=== PATIENT | male | born 1950 | race Caucasian/White ===

== ENCOUNTER → 2017-09-09 | Outpatient (CLI) | payer MEDICARE, OTHER | LOC: COL.RAD 09:50 | DX: M25.551 Pain in right hip (principal); S83.281A Other tear of lateral meniscus, current injury, right knee, initial encounter; X58.XXXA Exposure to other specified factors, initial encounter; M94.8X6 Other specified disorders of cartilage, lower leg | CPT/HCPCS: J3301; Q9967 ==

== ENCOUNTER → 2017-10-18 | Outpatient (CLI) | payer MEDICARE, OTHER | LOC: COL.RAD 08:43 | DX: M25.551 Pain in right hip (principal) | CPT/HCPCS: J3301; Q9967 ==

== ENCOUNTER → 2018-03-14 | Outpatient (CLI) | payer MEDICARE, OTHER | LOC: COL.RAD 10:33 | DX: M16.11 Unilateral primary osteoarthritis, right hip (principal) | CPT/HCPCS: J3301; Q9967 ==

== ENCOUNTER 2018-05-09 10:22 | Inpatient (IN) | payer MEDICARE, OTHER ==
[~2018-05-09] VITALS: Ht 172.7 cm; Wt 129.0 kg
[2018-07-09] VITALS (11 sets, daily range): BP systolic 108–145; BP diastolic 64–87; PULSE 81–107; TEMP 98.1–98.7
[2018-07-09] MEDS ORDERED: TOPROL XL 50MG50 MG PO (08:47)
[2018-07-09] MEDS ORDERED: CYMBALTA 60MG60 MG PO (09:09)
[2018-07-09] MEDS ORDERED: GLUCOPHAGE500 MG/TAB PO (09:09)
[2018-07-09] MEDS ORDERED: MOBIC15 MG PO (09:09)
[2018-07-10 03:53] VITALS: BP 133/68; PULSE 99; TEMP 98
[2018-07-10 06:41] LABS: HEMOGLOBIN 13.1 g/dl (13.5-18.0)
[2018-07-10 07:19] VITALS: BP 151/71; PULSE 98; TEMP 98.6
[2018-07-10 12:48] VITALS: BP 123/73; PULSE 107; TEMP 97.8
[2018-07-10 16:01] VITALS: BP 143/75; PULSE 103; TEMP 98
[2018-07-10 19:25] VITALS: BP 134/93; PULSE 108; TEMP 98.6
[2018-07-10 23:26] VITALS: BP 149/81; PULSE 98; TEMP 98.4
[2018-07-11 04:21] VITALS: BP 159/82; PULSE 102; TEMP 98.4
[2018-07-11] MEDS ORDERED: ASPI325T6 PO (06:49)
[2018-07-11] MEDS ORDERED: NORCO 325 MG-7.1 TAB PO (06:49)
[2018-07-11] MEDS ORDERED: ROXICODONE 55 MG/TAB PO (06:50)
[2018-07-11] MEDS ORDERED: TYLENOL 500MG500 MG PO (06:51)
[2018-07-11 07:17] LABS: BASO % 0.3 % (0.0-2.0); EOS % 0.2 % (0-4.0); GRAN # 7.4 (1.4-6.5); GRAN % 75.4 % (42.2-75.2); HEMOGLOBIN 12.1 g/dl (13.5-18.0); LYMPH # 1.8 (1.2-3.4); LYMPH % 18.3 % (20.0-51.0); MEAN CELL VOLUME 89 fl (80.0-100.0); MEAN CORPUSCULAR HEMOGLOBIN 29 pg (27.0-31.0); MEAN CORPUSCULAR HGB CONC 33 g/dl (33.0-37.0); MEAN PLATELET VOLUME 9.4 fl (7.4-10.4); MONO # 0.5 (0.1-0.6); MONO % 5.3 % (1.7-9.3); PLATELET COUNT 162 K/mm3 (130-400); RED BLOOD COUNT 4.18 M/mm3 (4.20-5.60)
[2018-07-11 07:28] LABS: CALCIUM 8.3 mg/dL (8.4-10.2); CREATININE, serum 0.79 mg/dL (0.66-1.25); POTASSIUM 4.1 mmol/L (3.4-5.0)
[2018-07-11 08:41] VITALS: BP 162/73; PULSE 101; TEMP 98.4
[2018-07-11] MEDS ORDERED: PRINIVIL5 MG PO (09:43)
[2018-07-11 11:49] VITALS: BP 145/73; PULSE 105; TEMP 97.8
== END 2018-07-11 12:30 | disposition home or self-care (01) | DRG 470 ==
LOC: JCC 07-09 07:32
PROVIDERS: Orthopaedic Surgery; Physician Assistant
PROC: 0SR90JA Replacement of Right Hip Joint with Synthetic Substitute, Uncemented, Open Approach (ICD-10-PCS; principal; 2018-07-09 14:15)
DX: M16.11 Unilateral primary osteoarthritis, right hip (principal); Z68.41 Body mass index [BMI] 40.0-44.9, adult; M87.851 Other osteonecrosis, right femur; E66.01 Morbid (severe) obesity due to excess calories; E11.65 Type 2 diabetes mellitus with hyperglycemia; I10 Essential (primary) hypertension; M06.9 Rheumatoid arthritis, unspecified
CPT/HCPCS: 99223; 99232-AI; A4314; C1713; C1776; J0690; J1100; J1815; J2250; J2405; J2704; J3010; J7030; J7120

== ENCOUNTER 2018-05-29 07:55 | Outpatient (RCR) | payer MEDICARE, OTHER ==
[2018-07-09] MEDS ORDERED: TOPROL XL 50MG50 MG PO (08:47)
[2018-07-09] MEDS ORDERED: GLUCOPHAGE500 MG/TAB PO (09:09)
[2018-07-09] MEDS ORDERED: MOBIC15 MG PO (09:09)
[2018-07-09] MEDS ORDERED: CYMBALTA 60MG60 MG PO (09:09)
[2018-07-11] MEDS ORDERED: ASPI325T6 PO (06:49)
[2018-07-11] MEDS ORDERED: NORCO 325 MG-7.1 TAB PO (06:49)
[2018-07-11] MEDS ORDERED: ROXICODONE 55 MG/TAB PO (06:50)
[2018-07-11] MEDS ORDERED: TYLENOL 500MG500 MG PO (06:51)
[2018-07-11] MEDS ORDERED: PRINIVIL5 MG PO (09:43)
== END 2018-08-27 | disposition home or self-care (01) ==
LOC: MKS.ESL.PT
DX: Z01.818 Encounter for other preprocedural examination (principal); M16.11 Unilateral primary osteoarthritis, right hip
CPT/HCPCS: G8978-GP; G8979-GP; G8980-GP

== ENCOUNTER → 2018-06-30 | Outpatient (CLI) | payer MEDICARE, OTHER ==
[2018-06-30 11:55] LABS: HIV 1/2 Antibodies Non-Reactive; HIV-1p24 Antigen Non-Reactive
== END ==
LOC: COL.LAB 10:31
PROVIDERS: Orthopaedic Surgery
DX: Z01.812 Encounter for preprocedural laboratory examination (principal); M16.11 Unilateral primary osteoarthritis, right hip

== ENCOUNTER 2018-08-22 14:00 | Outpatient (RCR) | payer MEDICARE, OTHER ==
[~2018-08-22 14:00] MED LIST: ASPI325T6 PO; CYMBALTA 60MG60 MG PO; GLUCOPHAGE500 MG/TAB PO; MOBIC15 MG PO; NORCO 325 MG-7.1 TAB PO; PRINIVIL5 MG PO; ROXICODONE 55 MG/TAB PO; TOPROL XL 50MG50 MG PO; TYLENOL 500MG500 MG PO
== END 2018-08-26 09:54 | disposition home or self-care (01) ==
LOC: MKS.ESL.PT 14:00
DX: Z47.1 Aftercare following joint replacement surgery (principal); Z96.641 Presence of right artificial hip joint
CPT/HCPCS: G8978-GP; G8979-GP; G8980-GP

== ENCOUNTER 2021-05-12 06:18 | Day surgery (SDC) | payer MEDICARE ==
[~2021-05-12] VITALS: Ht 172.7 cm; Wt 128.6 kg
[2021-05-12 07:23] VITALS: BP 113/86; PULSE 123; TEMP 97.9
--- NOTE | 2021-05-12 07:25 | NUR ---
Respiratory therapy here for EKG. Pt's heart rate now in the 160's and AFIB noted. Pt denies any dizziness, lightheadedness, or palpatations. He is slightly sweaty but reports this is normal for him. B/P is stable. Dr. Schwartz at bedside and sees EKG, speaks with Jazmin Martinez CRNA and the decision is made to cancel the procedure and she will notify hospitalist and admit the pt. Pt and his speak with Dr. Schwartz extensivly.
[2021-05-12] MEDS ORDERED: ASPIRIN 81M81 MG/TA2 PO (07:48)
[2021-05-12] MEDS ORDERED: KAPSPARGO SPRIN50 MG PO (07:48)
[2021-05-12] MEDS ORDERED: GLUCOPHAGE1000 MG PO (07:49)
[2021-05-12] MEDS ORDERED: NORCO 325 MG-51 TAB PO (07:50)
[2021-05-12] MEDS ORDERED: CYMBALTA 60MG60 MG PO (07:50)
[2021-05-12] MEDS ORDERED: PRINIVIL5 MG PO (07:51)
[2021-05-12] MEDS ORDERED: TAGAMET200 MG PO (07:51)
[2021-05-12] MEDS ORDERED: LIPITOR20 MG PO (07:52)
[2021-05-12] MEDS ORDERED: STOOL SOFTENER100 M2 PO (07:53)
--- NOTE | 2021-05-12 08:00 | NUR ---
Pt placed on the monitors and VSS heart rate ranges from 120's-150's. Pt continues to by asymptomatic. Call light in reach.
[2021-05-12] MEDS ORDERED: ELIQUIS 5MG PO (10:16)
[2021-05-12 14:00] VITALS: BP 103/60; PULSE 82; TEMP 98.4
--- NOTE | 2021-05-12 14:00 | NUR ---
Pt returns to [place] [facility] from [facility], awake and alert. VSS. Heart rate regular. Pt denies pain or nausea. Pt given crackers and water. at bedside. Call light in reach.
[2021-05-12 14:15] VITALS: BP 114/68; PULSE 80
--- NOTE | 2021-05-12 14:15 | NUR ---
Pt awake and alert, voids in urinal. Denies needs. Tolerated crackers and water well. VSS.
[2021-05-12 14:30] VITALS: BP 119/67; PULSE 79
--- NOTE | 2021-05-12 14:30 | NUR ---
Dr. Schwartz to bedside and talks with pt and his about findings and discharge plan. 1445 Discharge instructions given by RN and pt gets dressed.
--- NOTE | 2021-05-12 15:00 | NUR ---
Pt taken via wheelchair to private car and left in care of Angelina.
== END 2021-05-12 15:00 | disposition home or self-care (01) ==
LOC: ICU 06:18 → SDCO 06:18 → ICU 08:34 → SDCO 11:00 → ICU 11:00 → SDCO 11:01 → ICU 11:01 → SDCO 15:00
DX: K92.1 Melena (principal); D12.5 Benign neoplasm of sigmoid colon; K29.60 Other gastritis without bleeding; K29.80 Duodenitis without bleeding; K21.9 Gastro-esophageal reflux disease without esophagitis; K57.30 Diverticulosis of large intestine without perforation or abscess without bleeding; K64.1 Second degree hemorrhoids; R19.4 Change in bowel habit; I25.2 Old myocardial infarction; M19.90 Unspecified osteoarthritis, unspecified site; E11.9 Type 2 diabetes mellitus without complications; M25.50 Pain in unspecified joint; T67.5XXS Heat exhaustion, unspecified, sequela; N17.9 Acute kidney failure, unspecified; E66.01 Morbid (severe) obesity due to excess calories; E78.5 Hyperlipidemia, unspecified; Z86.73 Personal history of transient ischemic attack (TIA), and cerebral infarction without residual deficits; Z68.41 Body mass index [BMI] 40.0-44.9, adult; Z90.89 Acquired absence of other organs; Z85.820 Personal history of malignant melanoma of skin; Z20.822 Contact with and (suspected) exposure to COVID-19; Z79.82 Long term (current) use of aspirin; Z79.899 Other long term (current) drug therapy; Z79.84 Long term (current) use of oral hypoglycemic drugs; Z79.01 Long term (current) use of anticoagulants
CPT/HCPCS: J2704; J7030

== ENCOUNTER 2021-05-12 08:44 | Emergency (ER) | payer MEDICARE ==
[~2021-05-12 08:44] MED LIST changes: +ASPIRIN 81M81 MG/TA2 PO; +GLUCOPHAGE1000 MG PO; +KAPSPARGO SPRIN50 MG PO; +LIPITOR20 MG PO; +NORCO 325 MG-51 TAB PO; +STOOL SOFTENER100 M2 PO; +TAGAMET200 MG PO
[2021-05-12 08:52] VITALS: TEMP 98.2
[2021-05-12 09:23] LABS: BASO % 0.4 % (0.0-2.0); EOS # 0.1 (0.0-0.7); EOS % 1.9 % (0-4.0); GRAN # 3.3 (1.4-6.5); GRAN % 64.9 % (42.2-75.2); HEMOGLOBIN 11.4 g/dl (13.5-18.0); LYMPH # 1.3 (1.2-3.4); MEAN CELL VOLUME 82 fl (80.0-100.0); MEAN CORPUSCULAR HEMOGLOBIN 26 pg (27.0-31.0); MEAN CORPUSCULAR HGB CONC 32 g/dl (33.0-37.0); MEAN PLATELET VOLUME 8.9 fl (7.4-10.4); MONO # 0.4 (0.1-0.6); MONO % 7.4 % (1.7-9.3); PLATELET COUNT 265 K/mm3 (130-400); RED BLOOD COUNT 4.38 M/mm3 (4.20-5.60)
[2021-05-12 09:24] LABS: HEMATOCRIT 35.8 % (42.0-52.0)
[2021-05-12 09:40] LABS: ALANINE AMINOTRANSFERASE 28 U/L (4-49); ALBUMIN 3.4 gm/dL (3.5-5.0); ALKALINE PHOSPHATASE 93 U/L (50-136); ANION GAP 6 mmol/L (7-16); AST,SGOT 38 U/L (15-37); BILIRUBIN,TOTAL 0.4 mg/dL (0.0-1.0); BLOOD UREA NITROGEN 19 mg/dL (9-20); CALCIUM 8.8 mg/dL (8.4-10.2); CARBON DIOXIDE 26 mmol/L (22-30); CHLORIDE 107 mmol/L (98-107); CREATININE, serum 1.23 (0.66-1.25); GLUCOSE 120 mg/dL (74-106); POTASSIUM 4.6 mmol/L (3.4-5.0); SODIUM 139 mmol/L (137-145); TOTAL PROTEIN 6.8 gm/dL (6.4-8.2)
[2021-05-12 09:53] LABS: TROPONIN-I < 0.012 ng/mL (0.000-0.035)
[2021-05-12] MEDS ORDERED: ELIQUIS 5MG PO (10:16)
[2021-05-12 10:25] VITALS: BP 106/64; PULSE 86
== END 2021-05-12 10:25 | disposition home or self-care (01) ==
LOC: COL.ER 08:44
PROVIDERS: Emergency Medicine
DX: I48.91 Unspecified atrial fibrillation (principal); R19.5 Other fecal abnormalities; E66.01 Morbid (severe) obesity due to excess calories; I10 Essential (primary) hypertension; E11.9 Type 2 diabetes mellitus without complications; K21.9 Gastro-esophageal reflux disease without esophagitis; M54.5 Low back pain; Z79.82 Long term (current) use of aspirin; Z79.84 Long term (current) use of oral hypoglycemic drugs; Z79.899 Other long term (current) drug therapy; Z87.891 Personal history of nicotine dependence; Z88.6 Allergy status to analgesic agent

== ENCOUNTER → 2021-07-07 | Outpatient (CLI) | payer MEDICARE ==
[~2021-07-07] MED LIST changes: +ELIQUIS 5MG PO
== END ==
LOC: COL.CARD 11:30
DX: I48.91 Unspecified atrial fibrillation (principal)

== ENCOUNTER 2024-09-07 11:04 | Inpatient (IN) | payer MEDICARE ==
[~2024-09-07] VITALS: Ht 172.8 cm; Wt 120.5 kg
[2024-09-07] VITALS (15 sets, daily range): BP systolic 103–128; BP diastolic 57–84; PULSE 59–97; TEMP 97.5–97.8
[2024-09-07] MEDS ORDERED: Heparin 5,000 UNITS/ML 1 ML VIAL IV ONE (11:30)
[2024-09-07] MEDS ORDERED: Heparin/D5W 250 ML IV SCH ×2 (11:30→13:00)
[2024-09-07] MEDS ORDERED: Heparin 5,000 UNITS/ML 1 ML VIAL IV PRN ×2 (11:30→13:00)
[2024-09-07 11:32] LABS: PROTHROMBIN TIME 21.1 SECONDS (9.7-12.8)
[2024-09-07 11:35] LABS: PARTIAL THROMBOPLASTIN TIME 40.4 SECONDS (26.0-37.0)
[2024-09-07 11:42] LABS: ALBUMIN 3.6 g/dL (3.4-4.8); BILIRUBIN,TOTAL 0.4 mg/dL (0.2-1.2); CALCIUM 9.2 mg/dL (8.4-10.2); CREATININE, serum 1.51 mg/dL (0.72-1.25); MAGNESIUM 1.8 mg/dL (1.6-2.6); TOTAL PROTEIN 7.4 g/dl (6.2-8.1)
[2024-09-07] MEDS ORDERED: dilTIAZem 25 MG/5 ML VIAL IV ONE ×2 (11:45→13:15)
[2024-09-07 11:49] LABS: BASO % 0.5 % (0.0-2.0); EOS # 0.2 K/mm3 (0.0-0.7); EOS % 3.2 % (0.0-4.0); GRAN % 66.8 % (42.2-75.2); HEMOGLOBIN 12.3 g/dl (13.5-18.0); LYMPH # 1.3 K/mm3 (1.2-3.4); LYMPH % 21.4 % (20.0-51.0); MEAN CELL VOLUME 88 fl (80.0-100.0); MEAN CORPUSCULAR HEMOGLOBIN 27 pg (27-31); MEAN CORPUSCULAR HGB CONC 31 g/dl (33.0-37.0); MEAN PLATELET VOLUME 10.3 fl (7.4-10.4); MONO # 0.5 K/mm3 (0.1-0.6); MONO % 7.6 % (1.7-9.3); PLATELET COUNT 175 K/mm3 (130-400); RED BLOOD COUNT 4.53 M/mm3 (4.20-5.60); REDCELL DISTRIBUTION WIDTH-CV 16.7 % (11.5-14.5)
[2024-09-07 11:57] LABS: TROPONIN-I 0.035 ng/mL (0.00-0.033)
--- NOTE | 2024-09-07 14:20 | NUR ---
ER CALLED REPORT ON PATIENT GOING INTO ROOM 352. MED REC IS BEING DONE BY MED REC TECH PER ER NURSE. UNCLEAR IF PATIENT IS TAKING ANY ANICOAGULATION, OR PATIENT HISTORY. ER NURSE REPORTED PATIENT IS A&O BUT DIDN'T ANSWER QUESTIONS WELL. HEPARIN & CARDIZEM BOLUS GIVEN. HEPARIN GTT INFUSING. CARDIZEN GTT TO BE STARTED SOON THEY HAVE ANOTHER IV SITE. ER NURSE WAS GOING TO FINISH GETTING THE PATIENT READY FOR THE FLOOR AND STATED SHE WOULD CALL BEFORE COMING UP TO THE ROOM.
[2024-09-07] MEDS ORDERED: Glucagon 1 MG VIAL IM PRN (14:30)
[2024-09-07] MEDS ORDERED: Dextrose (Glucose) 15 GM (4 x 3.75 GM) Chewable TABLET PACK PO PRN (14:30)
[2024-09-07] MEDS ORDERED: Dextrose 50% Water 25 GM/50 ML SYRINGE IV PRN (14:30)
--- NOTE | 2024-09-07 15:15 | NUR ---
PATIENT BROUGHT UP VIA CART FROM ER, NO CALL MADE TO FLOOR RN PRIOR TO ARRIVAL. UPON ENTERING ROOM, ER NURSE AMBULATED PATIENT TO THE BED IN ROOM 352 WHERE HE PASSED OUT AND FACE PLANTED ON THE BED. FLOOR NURSE UNAWARE OF ARRIVAL. CHARGE NURSE PASSING BY ASSISTED TO GET PATIENT BACK IN BED AND CALLED FOR ASSISTANCE. PATIENT RESPONDING NOW BUT REPORTS HE FEELS LIKE HE "PASSED OUT". PATIENT'S B/P IN ER WAS 95/70, NOW IS 112 SYSTOLIC WITH HR IN THE 60'S. PATIENT RECEIVED CARDIZEM & HEPARIN BOLUSES IN ER AND STARTED ON A HEPARIN GTT & CARDIZEM GTT PRIOR TO ADMIT TO THE FLOOR. PATIENT SEEMS A LITTLE OUT OF IT. CALLED CARDIOLOGY AND GAVE PATIENT STATUS UPDATE. OKAY TO RESUME DRIPS, ATTEMPTING TO CLARIFY MEDS WITH AND MED REC TECH ATTEMPTED TO BE CALLED X3 WITH NO ANSWER. ER NURSE AT BEDSIDE STATED THE MED REC TECH ALREADY HAS A LIST AND IS DOING THE MED REC. MED REC IS NOT DONE, ELIQUIS IS NOT LISTED AND THE WRONG PHARMACY WAS LISTED. CALLED PHARMACY TO VERIFY HEPARIN GTT TO BE MEASURED BY PTT OR HEPXA. NO DOCUMENTATION OF PATIENT STARTING ELIQUIS HOWEVER, AT BEDSIDE REPORTS HE HAS BEEN ON EL[facility]QU[facility] SINCE SATURDAY AND THAT SHE TRIED TO GIVE A MED LIST TO THE STAFF IN ER BUT NO ONE WENT OVER IT WITH HER. MADE AWARE, PLAN IS FROM STRESS TEST IN AM. AHA/ADA DIET AND THEN NPO AT MIDNIGHT. HR IN THE 60'S, IRREGULAR ON TELE. NO COMPLAINTS AT THIS TIME. HEAD TO TOE ASSESSMENT COMPLETE, NOTED SEVERAL SKIN ISSUES, SEE ADMISSION DOCUMENTATION. FULL CODE. ORIENTED PATIENT, & BROTHER TO ROOM. CALL LIGHT IN REACH.
[2024-09-07] MEDS ORDERED: Furosemide 40 MG/4 ML VIAL IV ONE (15:30)
[2024-09-07] MEDS ORDERED: ELIQUIS 5MG PO (16:32)
[2024-09-07] MEDS ORDERED: Insulin Lispro (HumaLOG) SQ SCH (17:00)
[2024-09-07] MEDS ORDERED: LASIX 20MG TABL20 MG PO (18:14)
[2024-09-07] MEDS ORDERED: LEVAQUIN 5500 MG/TA1 PO (18:15)
[2024-09-07] MEDS ORDERED: TOPROL XL100 MG PO (18:17)
[2024-09-07] MEDS ORDERED: TYLENOL 500MG500 MG PO (18:18)
[2024-09-07] MEDS ORDERED: NEURONTIN300 MG/CAP PO (18:20)
--- NOTE | 2024-09-07 19:40 | NUR ---
Delay in PTT/HepXa draw due to patient being a hard stick. Lab to send another phleb up to try-third to try so far. Will monitor.
--- NOTE | 2024-09-07 20:12 | NUR ---
Critical PTT >400-heparin drip stopped per protocol. New orders placed for PTT in two hours.
[2024-09-07] MEDS ORDERED: Atorvastatin 20 MG TAB PO SCH (21:00)
--- NOTE | 2024-09-07 21:00 | NUR ---
Spoke with spouse of patient who is at bedside and staying the night. Patient should be on strict I/O due to diuresing. I/O sheet placed in room. Verbalized understanding. Call light in reach. Will monitor.
--- NOTE | 2024-09-07 21:00 | NUR ---
Spoke with MELITON Canchola to update on Heparin gtt status. Notified of critical PTT >400. No new orders received. Next PTT due at 2215.
[2024-09-07 23:01] LABS: PARTIAL THROMBOPLASTIN TIME 83.9 SECONDS (26.0-37.0)
--- NOTE | 2024-09-07 23:15 | NUR ---
PTT 83.9-goal. Heparin gtt decreased 300 units/3mls to 2000units/20mls per protocol and restarted at this time. Next PTT due at 0515. Updated family and patient. Will monitor.
[2024-09-08] VITALS (25 sets, daily range): BP systolic 109–146; BP diastolic 26–89; PULSE 88–143; TEMP 97.4–98.4
--- NOTE | 2024-09-08 01:04 | NUR ---
Notified by a dealer support technician that patients HR went up to 130s for a second and then back down to 100s. Patient is currently in A FIB and on an amio drip with a HR in the 90s. Will monitor.
--- NOTE | 2024-09-08 05:13 | NUR ---
Call from [employer] that patients HR is in the 140s. This nurse to room to evaluate patient. is at bedside and states patient was having a nightmare and had been moving around in bed and yelling out. Patients spouse states she woke patient up after a few minutes. Currently patients HR is 110. Will monitor.
--- NOTE | 2024-09-08 05:59 | NUR ---
Patient didnt rest much this shift. Cardizem infusing to left AC 20g at 5mg/hr. Heparin infusing to right AC 20g at 2000 units/hr. Waiting PTT results at this time. Has had 1190 out in urine this shift. TELE reporting A fib. VS stable. Has been NPO since 0000. Denies current questions/concerns. Call light in reach. Will monitor.
--- NOTE | 2024-09-08 06:00 | NUR ---
Requested lab draw patient next as PTT is past due. States they will go there next.
--- NOTE | 2024-09-08 07:35 | NUR ---
Patient in bed, lab and at the bedside. A&Ox4. VSS. IV CDI, fluids infusing. Denies pain and discomfort. NPO for a procedure. Call light within reach. Bed alarm on
[2024-09-08] MEDS ORDERED: MIRALAX PA17 GM/Dose PO (07:51)
[2024-09-08] MEDS ORDERED: Regadenoson 0.08 MG/ML 5 ML SYRINGE IV SCH (08:58)
[2024-09-08] MEDS ORDERED: Docusate Sodium 100 MG CAP PO SCH (09:00)
[2024-09-08] MEDS ORDERED: Pantoprazole 40 MG in NS 10 ML IV SCH (09:00)
[2024-09-08] MEDS ORDERED: DULoxetine 60 MG CAP PO SCH (09:00)
--- NOTE | 2024-09-08 11:15 | NUR ---
KATE met with patient and his Angelina ([phone], ) to complete initial assessment for discharge planning. [place] Patient lists his son Kristian ([phone]) as contact. Patient denies having a DPOA completed but is interested in completing one at this time. Patient sees Dr. Pako Villanueva as his PCP and uses [facility] pharmacy without difficulty. Patient has a cane, walker, wheelchair, lift chair, and shower bench at home. Patient plans to return home at time of discharge. Discharge plan: Home
[2024-09-08 11:16] LABS: BASO % 0.4 % (0.0-2.0); EOS # 0.1 K/mm3 (0.0-0.7); GRAN # 3.5 K/mm3 (1.4-6.5); GRAN % 70.3 % (42.2-75.2); HEMOGLOBIN 11.2 g/dl (13.5-18.0); MEAN CELL VOLUME 85 fl (80.0-100.0); MEAN CORPUSCULAR HEMOGLOBIN 27 pg (27-31); MEAN CORPUSCULAR HGB CONC 32 g/dl (33.0-37.0); MEAN PLATELET VOLUME 10.1 fl (7.4-10.4); MONO # 0.3 K/mm3 (0.1-0.6); MONO % 6.1 % (1.7-9.3); PLATELET COUNT 126 K/mm3 (130-400); RED BLOOD COUNT 4.14 M/mm3 (4.20-5.60); REDCELL DISTRIBUTION WIDTH-CV 16.8 % (11.5-14.5)
[2024-09-08 11:17] LABS: HEMATOCRIT 35.3 % (42.0-52.0)
[2024-09-08 11:35] LABS: CALCIUM 9.1 mg/dL (8.4-10.2); CHOLESTEROL RISK RATIO 3.1; CREATININE, serum 1.21 mg/dL (0.72-1.25); POTASSIUM 4.3 mEq/L (3.5-4.5)
--- NOTE | 2024-09-08 11:48 | NUR ---
Notified CHEN Worley charge of mews score 4. Patient A&Ox4. HR tachycardic, doctors aware and awaiting testing.
[2024-09-08] MEDS ORDERED: LR 1,000 ML IV SCH (12:30)
[2024-09-08] MEDS ORDERED: Lidocaine PF 2% (20 MG/ML) 5 ML VIAL ONE (12:30)
[2024-09-08] MEDS ORDERED: *Potassium Replacement Protocol MC SCH (13:00)
[2024-09-08] MEDS ORDERED: Furosemide 100 MG in NS 100 ML IV SCH (13:00)
--- NOTE | 2024-09-08 13:08 | NUR ---
Initial visit; Patient indisposed, [place] spoke with his ; Angelina letting her know of the availability of [facility] at [facility].
--- NOTE | 2024-09-08 14:02 | NUR ---
KATE and CHEN Pearson met with patient to complete DPOA document. Patient named his Angelina as DPOA and their son Kristian as alternate. KATE and CHEN Pearson witnessed signature. Original and copies provided to patient and , copy of DPOA on chart. Discharge plan: Home
--- NOTE | 2024-09-08 14:39 | NUR ---
House Supervisors Gaby RN and CHEN Marinelli of MEWS score of 4 and that patient has been ST in the 120-140 range. Primary nurse CHEN Pearson notified June Hughes- new order rec'd. Pt asymptomatic.
--- NOTE | 2024-09-08 14:50 | NUR ---
Dose adjusted cardizem per cardiologys orders. VS monitored per protocol. Patient informed of status and verbalized understanding. No further needs expressed. Call light within reach
--- NOTE | 2024-09-08 15:12 | NUR ---
Painting catheter inserted. Pericare provided before and after removal. 16F painting, 10ml in balloon. Patient tolerated well. No further needs expressed. Call light within reach. Bed alarm on
--- NOTE | 2024-09-08 15:53 | NUR ---
MEWS SCORE 4, WILL CONTINUE TO UPDATE CHEN COX CHARGE ON PATIENT STATUS. PATIENT A&OX4. VSS. IV CDI. DENIES PAIN AND DISCOMFORT. CALL LIGHT WITHIN REACH
--- NOTE | 2024-09-08 16:07 | NUR ---
CHEN COX CHARGE NOTIFIED HOUSE OF MEWS SCORE
[2024-09-08] MEDS ORDERED: Cephalexin 500 MG CAP PO SCH (21:00)
[2024-09-09] VITALS (20 sets, daily range): BP systolic 111–152; BP diastolic 53–83; PULSE 87–116; TEMP 97.5–98.1
--- NOTE | 2024-09-09 01:18 | NUR ---
patient lying in bed, alert and oriented x4, hard of hearing bilaterally, at bedside. denies chest pain/discomfort and shortness of breath. 2058- SULMA Canchola notified for clarification of keflex order, new orders to start keflex 09/09/24. pt aware of NPO status. PICC in YARITZA with heparin gtt running at 2000 units/hr in one line, and cardizem gtt running at 7.5 mg/min in other line, site CDI. 2229- per PTT result, heparin gtt paused for 1 hour and decreased 250 units. heparin gtt restarted at 2332 to run at 1750 units/hr with next pTT recheck at 0530. LAC IV patent, site CDI with lasix gtt running at 11 ml/hr. BLE +2 pitting edema hands with non pitting edema. left calf with scabbed ulcer and right calf with multiple small scattered/scabbed ulcers, all CDI. painting catheter in place, draing pale yellow clear urine. fall precautions in place, call light within reach. interim dry cloth placed under panus to prevent moisture build up, skin CDI. pt has no further needs, questions or concerns at this time.
[2024-09-09 06:36] LABS: BASO % 0.4 % (0.0-2.0); EOS # 0.1 K/mm3 (0.0-0.7); EOS % 2.6 % (0.0-4.0); GRAN # 3.3 K/mm3 (1.4-6.5); GRAN % 68.1 % (42.2-75.2); HEMATOCRIT 37.4 % (42.0-52.0); HEMOGLOBIN 12.3 g/dl (13.5-18.0); LYMPH # 1.1 K/mm3 (1.2-3.4); LYMPH % 22.6 % (20.0-51.0); MEAN CELL VOLUME 83 fl (80.0-100.0); MEAN CORPUSCULAR HEMOGLOBIN 27 pg (27-31); MEAN CORPUSCULAR HGB CONC 33 g/dl (33.0-37.0); MEAN PLATELET VOLUME 10.1 fl (7.4-10.4); MONO # 0.3 K/mm3 (0.1-0.6); MONO % 6.1 % (1.7-9.3); PLATELET COUNT 136 K/mm3 (130-400); REDCELL DISTRIBUTION WIDTH-CV 16.7 % (11.5-14.5)
[2024-09-09 06:55] LABS: CALCIUM 9.1 mg/dL (8.4-10.2); CREATININE, serum 1.19 mg/dL (0.72-1.25); POTASSIUM 3.4 mEq/L (3.5-4.5)
[2024-09-09] MEDS ORDERED: Potassium Bicarbonate/Citrate 20 MEQ Effervescent TAB PO SCH (08:30)
[2024-09-09] MEDS ORDERED: *Potassium Replacement Protocol MC SCH ×2 (08:30→09:15)
[2024-09-09] MEDS ORDERED: Potassium Chloride 100 ML IV SCH ×2 (09:15→15:30)
[2024-09-09] MEDS ORDERED: Magnesium Sulfate 2 GM/50 ML IV SOLN IV SCH (11:30)
[2024-09-09] MEDS ORDERED: Iohexol 300 - 100 ML VIAL IV ONE (12:00)
[2024-09-09] MEDS ORDERED: Magnesium Sulfate 1 GM/100 ML IV Soln IV SCH (12:30)
--- NOTE | 2024-09-09 13:19 | NUR ---
PATIENT WENT DOWN TO PANTOGRAPH OPERATOR AT APPROX 1310. PATIENT IS ALERT ADN ORIENTED.
[2024-09-09] MEDS ORDERED: Lidocaine PF 2% (20 MG/ML) 5 ML VIAL ONE (14:14)
[2024-09-09] MEDS ORDERED: Amiodarone 450 MG in D5W Excel 250 ML IV SCH (15:18)
[2024-09-09] MEDS ORDERED: Furosemide 100 MG in NS 100 ML IV SCH (15:30)
[2024-09-09] MEDS ORDERED: Apixaban 5 MG TABLET PO ONE (15:30)
--- NOTE | 2024-09-09 15:38 | NUR ---
ANESTHESIA PRESENT FOR SEDATION DURING SAMSON/ CARDIOVERSION. SEE ANESTHESIA RECORD FOR IN PROCEDURE MONITORING. SAMSON START AT 1433, SAMSON COMPLETION AT 1437. UPON COMPLETION OF SAMSON, CARDIOVERSION COMPLETED UNDER GUIDANCE BY DR JOHNSON. ATTEMPTED CARDIOVERSION AT 75 J,UNSUCCESFUL PT REMAINED IN AFIB. ANOTHER CARDIOVERSION AT 200J SUCCESFULLY CONVERTED PATIENT TO NSR. A BOLUS OF AMIODARONE 300 ML WAS DELIVERED PER VERBAL ORDER FROM DR JOHNSON. PATIENT TOLERATED PROCEDURE WELL.
--- NOTE | 2024-09-09 15:43 | NUR ---
SKINPREPPED AND DRAPED IN STERILE FASHION AT 1504. DR JOHNSON INSERTED LOOP RECORDER AND CLOSED SIDE WITH TWO STITCHES. PRESSURE WAS HELD ON SITE AND A DRESSING WAS APPLIED. DEVICE PROGRAMMED PER GUIDELINES. REPORT GIVEN TO JEFFREY SIDDIQUI AT 1534. PATIENT TOLERATED PROCEDURE WELL AND IS BEING TRANSFERRED BACK TO MEDICAL FLOOR AT 1545.
--- NOTE | 2024-09-09 16:40 | NUR ---
PATIENT BACK FROM CONCRETE TECHNICIAN AT APPROX 1600. PATIENT IS AWAKE, ALERT AND ORIENTED. VSS. PATIENT STABLE ON RA. POST OP VS INITIATED. AMIO GTT RUNNING INTRAVANEOUSLY PER JAN. PATIENT MONITORED ON TELE. LASIX GTT CONT. INCISION TO LEFT CHEST IS CDI. EKG COMPLETE. PATIENT ORDERS DINNER, DENIES PAIN OR DISCOMFORT. AT BEDSIDE.
[2024-09-09] MEDS ORDERED: Cephalexin 500 MG CAP PO SCH (21:00)
[2024-09-10] VITALS (7 sets, daily range): BP systolic 119–159; BP diastolic 72–88; PULSE 83–92; TEMP 97.9–98.1
--- NOTE | 2024-09-10 00:18 | NUR ---
patient lying in bed, alert and oriented x4, hard of hearing, at bedside. denies chest pain/discomfort and shortness of breath. BLE +2 pitting edema, small scabbed ulcer to left calf and multiple small scabbed ulcers to right calf/kaur noted, all CDI. PICC in YARITZA is patent with amio gtt running at 35 ml/hr, site CDI and IV in LAC with lasix gtt running at 5 mg/hr, site CDI. fall precautions in place, call light within reach, pt self repositioning in bed. pt has no further needs, questions or concerns at this time.
[2024-09-10 06:32] LABS: BASO % 0.6 % (0.0-2.0); EOS # 0.1 K/mm3 (0.0-0.7); EOS % 2.7 % (0.0-4.0); GRAN # 3.8 K/mm3 (1.4-6.5); GRAN % 74.6 % (42.2-75.2); HEMOGLOBIN 11.7 g/dl (13.5-18.0); LYMPH # 0.7 K/mm3 (1.2-3.4); LYMPH % 14.5 % (20.0-51.0); MEAN CELL VOLUME 84 fl (80.0-100.0); MEAN CORPUSCULAR HEMOGLOBIN 27 pg (27-31); MEAN CORPUSCULAR HGB CONC 33 g/dl (33.0-37.0); MEAN PLATELET VOLUME 10.1 fl (7.4-10.4); MONO # 0.4 K/mm3 (0.1-0.6); PLATELET COUNT 141 K/mm3 (130-400); RED BLOOD COUNT 4.28 M/mm3 (4.20-5.60); REDCELL DISTRIBUTION WIDTH-CV 16.6 % (11.5-14.5)
[2024-09-10 06:35] LABS: HEMATOCRIT 35.9 % (42.0-52.0)
[2024-09-10 06:50] LABS: CREATININE, serum 1.34 mg/dL (0.72-1.25); MAGNESIUM 1.8 mg/dL (1.6-2.6); POTASSIUM 3.4 mEq/L (3.5-4.5)
[2024-09-10] MEDS ORDERED: Potassium Chloride 100 ML IV SCH (07:30)
[2024-09-10] MEDS ORDERED: Apixaban 5 MG TABLET PO SCH (09:00)
[2024-09-10] MEDS ORDERED: Amiodarone 200 MG TAB PO SCH (10:00)
[2024-09-10] MEDS ORDERED: Torsemide 20 MG TAB PO SCH (11:15)
[2024-09-10] MEDS ORDERED: Spironolactone 12.5 MG TAB PO SCH (11:15)
--- NOTE | 2024-09-10 11:35 | NUR ---
PT/OT GOT PATIENT UP TO COMMODE. PATIENT HAD ONE EPISODE OF DIARRHEA. THIS RN CLEANED PATIENT UP AND APPLIED BARRIER CREAM. PATIENT IS EXTENSIVE 2-3 ASSIST. AT BEDSIDE.
--- NOTE | 2024-09-10 13:03 | NUR ---
SW received call from therapy stating that patient is safe to return home with and does not require post acute rehab. SW met with patient and to review Medicare IM form. Both voiced understanding and are agreeable to discharge to home. signed form, original on chart, copy provided to patient.
[2024-09-10] MEDS ORDERED: CEPHALEXIN500 M1 PO (14:49)
[2024-09-10] MEDS ORDERED: ALDACTONE 25MG25 M1 PO (14:49)
[2024-09-10] MEDS ORDERED: DEMADEX 20MG20 M1 PO (14:50)
[2024-09-10] MEDS ORDERED: K-TAB20 PO (14:50)
[2024-09-10] MEDS ORDERED: CORDARONE200 MG/TAB PO (14:53)
--- NOTE | 2024-09-10 15:37 | NUR ---
THIS RN PROVIDED PATIENT WITH DISCHARGE EDUCATION AND INSTRUCTIONS. ALL QUESTIONS ANSWERED. THIS RN REMOVED RIZO PER ORDERS AND PROVIDED [facility]HA CARE. CHARGE NURSE REMOVING PICC LINE PER PROTOCOL.
--- NOTE | 2024-09-10 16:32 | NUR ---
PICC line to YARITZA removed per protocol at 1542. Pt remained flat until 1515.
--- NOTE | 2024-09-10 16:41 | NUR ---
THIS RN ESCORTED OFF UNIT AT APPROX 1635. ALL BELONGINGS WITH .
== END 2024-09-10 16:35 | disposition home or self-care (01) | DRG 261 ==
LOC: COL.ER 11:04 → MEDICAL 12:58
PROVIDERS: Family Medicine; Internal Medicine Cardiovascular Disease; Physician Assistant; ADMIT Internal Medicine
PROC: 5A2204Z Restoration of Cardiac Rhythm, Single (ICD-10-PCS; principal; 2024-09-07)
PROC: 0JH632Z Insertion of Monitoring Device into Chest Subcutaneous Tissue and Fascia, Percutaneous Approach (ICD-10-PCS; 2024-09-07)
PROC: 02HV33Z Insertion of Infusion Device into Superior Vena Cava, Percutaneous Approach (ICD-10-PCS; 2024-09-07)
DX: I48.0 Paroxysmal atrial fibrillation (principal); N17.9 Acute kidney failure, unspecified; Z68.42 Body mass index [BMI] 45.0-49.9, adult; I10 Essential (primary) hypertension; E66.01 Morbid (severe) obesity due to excess calories; E11.9 Type 2 diabetes mellitus without complications; Z79.84 Long term (current) use of oral hypoglycemic drugs; E78.5 Hyperlipidemia, unspecified; K21.9 Gastro-esophageal reflux disease without esophagitis; Z79.82 Long term (current) use of aspirin; Z87.891 Personal history of nicotine dependence; I87.2 Venous insufficiency (chronic) (peripheral); E87.5 Hyperkalemia; M17.9 Osteoarthritis of knee, unspecified; M16.9 Osteoarthritis of hip, unspecified; R26.9 Unspecified abnormalities of gait and mobility; E87.6 Hypokalemia
CPT/HCPCS: A4314; A9284; A9500-JZ; C1751; C1764; J0282; J1644; J1940; J2470; J2704; J2785; J3475; J3480; J7060; Q9967